=== PATIENT | male | born 1950 | race Caucasian/White ===

== ENCOUNTER 2019-01-05 10:23 | Outpatient (REF) | payer MEDICARE, BC, SELFPAY | END 2019-01-05 10:43 | LOC: NCHCN 10:23 | PROVIDERS: PCP Family Medicine; Visit Provider Internal Medicine | DX: R69 Illness, unspecified (principal) | CPT/HCPCS: 80048 ==

== ENCOUNTER 2019-05-18 15:30 | Outpatient (REF) | payer MEDICARE, BC, SELFPAY ==
[2019-05-18 21:45] LABS: Abs Immature Grans 0.02 k/cumm (0.0-0.09); Absolute Basophil Count 0.02 k/cumm (0.0-0.2); Absolute Eosinophil Count 0.21 k/cumm (0.0-0.7); Absolute Lymphocyte Count 1.18 k/cumm (1.2-3.4); Absolute Monocyte Count 0.58 k/cumm (0.11-0.7); Absolute Neutrophil Count 4.92 k/cumm (1.2-6.7); Basophils % 0.3; HCT 46.7 % (40.0-50.0); HGB 15.7 g/dL (13.5-17.5); Immature Grans % 0.3; Mean Corp. HGB Concentration 33.6 g/dL (32.0-36.0); Mean Corpuscular Hemoglobin 31.9 pg (27.0-33.0); Mean Corpuscular Volume 94.9 fL (80-95); Monocytes % 8.4; Platelet Count 164 x1000/uL (130-400); RBC 4.92 m/cumm (4.50-6.00); RBC Distribution Width 13.9 % (11.8-14.1); White Blood Cell Count 6.93 k/cumm (4.4-10.8)
[2019-05-18 22:41] LABS: ALT 30 U/L (16-63); AST 22 U/L (15-37); Albumin 4.2 g/dL (3.4-5.0); Alkaline Phosphatase 47 U/L (46-116); Anion Gap 9.1 mmol/L (3-11); BUN 18 mg/dL (7-18); Bilirubin, Total 0.4 mg/dL (0.2-1.0); CO2 27.9 mmol/L (21.0-32.0); CREATININE 0.93 mg/dL (0.70-1.30); Calcium 9.3 mg/dL (8.5-10.1); Chloride 104 mmol/L (98-107); Glucose 112 mg/dL (70-100); Potassium 4.8 mmol/L (3.5-5.1); Sodium 141 mmol/L (136-145); TSH (W/Ref FT4) 1.32 uIU/mL (0.36-3.74); Total Protein 7.3 g/dL (6.4-8.2); Vitamin B12 305 pg/mL (193-986)
[2019-05-18 23:23] LABS: Vitamin D 25 Total 37.6 ng/ml (30-100)
[2019-05-21 09:40] LABS: Anaplasma phagocytophilum Negative (Negative); B. miyamotoi PCR Negative (Negative); Babesia divergens/MO-1 Negative (Negative); Babesia duncani Negative (Negative); Babesia microti Negative (Negative); Ehrlichia chaffeensis Negative (Negative); Ehrlichia ewingii/canis Negative (Negative); Ehrlichia muris eauclairensis Negative (Negative)
[2019-05-22 11:04] LABS: Lyme Ab w Rflx to Lyme Confirm Negative
== END 2019-05-18 15:50 ==
LOC: NCHCN 15:30
PROVIDERS: PCP Family Medicine; Visit Provider Family Medicine
DX: R53.83 Other fatigue (principal); M25.50 Pain in unspecified joint; R10.11 Right upper quadrant pain
CPT/HCPCS: 80053; 82306; 87798; 82607; 84443; 85025; 86618

== ENCOUNTER 2019-08-18 14:41 | Outpatient (REF) | payer MEDICARE, BC, SELFPAY ==
[2019-08-18 21:00] LABS: Vitamin B12 687 pg/mL (193-986)
== END 2019-08-18 15:01 ==
LOC: NCHCN 14:41
PROVIDERS: PCP Family Medicine; Visit Provider Family Medicine
DX: E53.8 Deficiency of other specified B group vitamins (principal)
CPT/HCPCS: 82607

== ENCOUNTER 2020-02-27 18:09 | Outpatient (REF) | payer MEDICARE, BC, SELFPAY ==
[2020-02-27 20:36] LABS: ALT 31 U/L (16-63); AST 20 U/L (15-37); Albumin 4.4 g/dL (3.4-5.0); Alkaline Phosphatase 49 U/L (46-116); Anion Gap 8.9 mmol/L (3-11); BUN 14 mg/dL (7-18); Bilirubin, Total 0.4 mg/dL (0.2-1.0); CO2 30.1 mmol/L (21.0-32.0); CREATININE 0.98 mg/dL (0.70-1.30); Calcium 9.4 mg/dL (8.5-10.1); Chloride 104 mmol/L (98-107); Glucose 105 mg/dL (74-106); Potassium 4.5 mmol/L (3.5-5.1); Sodium 143 mmol/L (136-145); Total Protein 7.5 g/dL (6.4-8.2); Vitamin B12 399 pg/mL (193-986)
== END 2020-02-27 18:29 ==
LOC: NCHCN 18:09
PROVIDERS: PCP Family Medicine; Visit Provider Family Medicine
DX: E53.8 Deficiency of other specified B group vitamins (principal); R10.11 Right upper quadrant pain
CPT/HCPCS: 80053; 82607

== ENCOUNTER 2020-07-05 18:37 | Outpatient (REF) | payer MEDICARE, BC, SELFPAY ==
[2020-07-05 21:47] LABS: Vitamin B12 396 pg/mL (193-986)
== END 2020-07-05 18:57 ==
LOC: NCHCN 18:37
PROVIDERS: PCP Family Medicine; Visit Provider Family Medicine
DX: E53.8 Deficiency of other specified B group vitamins (principal)
CPT/HCPCS: 82607

== ENCOUNTER 2021-01-24 17:50 | Outpatient (REF) | payer MEDICARE, BC, SELFPAY ==
[2021-01-24 20:39] LABS: HCT 43.7 % (40.0-50.0); MCHC 34.3 % (32.0-36.0); MCV 93.2 fL (80-95); Platelet Count 156 10^3/uL (130-400); RBC 4.69 10^6/uL (4.36-5.78); RDW 12.9 % (11.8-14.1); WBC 6.33 10^3/uL (4.4-10.8)
[2021-01-24 21:20] LABS: ALT 27 U/L (16-63); AST 16 U/L (15-37); Albumin 4.1 g/dL (3.4-5.0); Alkaline Phosphatase 44 U/L (46-116); BUN 16 mg/dL (7-18); Bilirubin, Total 0.5 mg/dL (0.2-1.0); CREATININE 0.9 mg/dL (0.70-1.30); Chloride 105 mmol/L (98-107); Glucose 111 mg/dL (74-106); Sodium 142 mmol/L (136-145); Total Protein 6.9 g/dL (6.4-8.2); Vitamin B12 504 pg/mL (193-986)
== END 2021-01-24 17:51 | disposition home or self-care (01) ==
LOC: NCHCN 17:50
PROVIDERS: Visit Provider Family Medicine
DX: E53.8 Deficiency of other specified B group vitamins (principal); I25.10 Atherosclerotic heart disease of native coronary artery without angina pectoris
CPT/HCPCS: 80053; 85027; 82607

== ENCOUNTER 2021-06-12 16:19 | Outpatient (REF) | payer MEDICARE, BC, SELFPAY ==
[2021-06-12 21:54] LABS: ALT 27 U/L (16-63); AST 15 U/L (15-37); Albumin 3.8 g/dL (3.4-5.0); Alkaline Phosphatase 37 U/L (46-116); Anion Gap 7.8 mmol/L (3-11); BUN 18 mg/dL (7-18); Bilirubin, Total 0.3 mg/dL (0.2-1.0); CO2 28.2 mmol/L (21.0-32.0); Calcium 8.7 mg/dL (8.5-10.1); Calculated LDL 147 mg/dL (<100); Chloride 106 mmol/L (98-107); Cholesterol 224 mg/dL (<200); Glucose 151 mg/dL (74-106); HDL Cholesterol 52 mg/dL (40-60); Magnesium 2.1 mg/dL (1.8-2.4); Sodium 142 mmol/L (136-145); Total Protein 6.7 g/dL (6.4-8.2); Triglyceride 127 mg/dL (<150)
[2021-06-12 21:57] LABS: Vitamin B12 > 2000 pg/mL (193-986)
[2021-06-12 22:05] LABS: C-Reactive Protein 0.16 mg/dL (0.0-0.3)
[2021-06-13 17:02] LABS: Rheumatoid Factor <8.6 IU/mL (<12.0)
[2021-06-15 10:20] LABS: Cyclic Citrullinated Peptide <2.5 U/mL (<5.0)
[2021-06-16 11:24] LABS: Hepatitis C Ab w Rflx HCV PCR Negative (Negative)
[2021-06-16 13:56] LABS: ANA Interpretation Positive (Negative); ANA Titer Pattern 1:80 Homogeneous
== END 2021-06-12 16:20 | disposition home or self-care (01) ==
LOC: NCHCN 16:19
PROVIDERS: PCP Family Medicine; Visit Provider Family Medicine
DX: K76.0 Fatty (change of) liver, not elsewhere classified (principal); E53.8 Deficiency of other specified B group vitamins; R10.11 Right upper quadrant pain; M25.50 Pain in unspecified joint; G47.00 Insomnia, unspecified; Z11.59 Encounter for screening for other viral diseases
CPT/HCPCS: 80053; 80061; 86200; 86803; 82607; 83735; 86038; 86140; 86431

== ENCOUNTER 2022-01-15 14:44 | Outpatient (REF) | payer MEDICARE, BC, SELFPAY ==
[2022-01-15 14:32] LABS: HCT 47.7 % (40.0-50.0); HGB 15.9 g/dL (13.5-17.5); MCH 31.5 pg (27.0-33.0); MCHC 33.3 % (32.0-36.0); MCV 95 fL (80-95); MPV 11.6 fL (8.0-11.0); Platelet Count 168 10^3/uL (130-400); RBC 5.04 10^6/uL (4.36-5.78); RDW 12.9 % (11.8-14.1); RDW-SD 44.8 fL; WBC 6.83 10^3/uL (4.4-10.8)
[2022-01-15 14:50] LABS: Hemoglobin A1C 6.6 % (<5.7)
[2022-01-15 15:09] LABS: ALT 20 U/L (16-63); AST 15 U/L (15-37); Albumin 4.2 g/dL (3.4-5.0); Alkaline Phosphatase 46 U/L (46-116); Anion Gap 6.8 mmol/L (3-11); BUN 17 mg/dL (7-18); Bilirubin, Total 0.5 mg/dL (0.2-1.0); CO2 29.2 mmol/L (21.0-32.0); Chloride 105 mmol/L (98-107); Glucose 130 mg/dL (74-106); Potassium 4.4 mmol/L (3.5-5.1); Sodium 141 mmol/L (136-145); Total Protein 7.1 g/dL (6.4-8.2); Vitamin B12 340 pg/mL (193-986)
== END 2022-01-15 14:45 | disposition home or self-care (01) ==
LOC: NCHCN 14:44
PROVIDERS: PCP Family Medicine; Visit Provider Family Medicine
DX: R73.03 Prediabetes (principal); K76.0 Fatty (change of) liver, not elsewhere classified; I25.10 Atherosclerotic heart disease of native coronary artery without angina pectoris; E53.8 Deficiency of other specified B group vitamins
CPT/HCPCS: 80053; 85027; 82607; 83036

== ENCOUNTER 2022-04-09 16:27 | Outpatient (REF) | payer MEDICARE, BC, SELFPAY ==
[2022-04-09 15:06] LABS: Hemoglobin A1C 6.7 % (<5.7)
[2022-04-09 15:31] LABS: Anion Gap 8.9 mmol/L (3-11); BUN 18 mg/dL (7-18); CO2 27.1 mmol/L (21.0-32.0); Calcium 8.5 mg/dL (8.5-10.1); Chloride 104 mmol/L (98-107); Glucose 172 mg/dL (74-106); Potassium 3.6 mmol/L (3.5-5.1); Sodium 140 mmol/L (136-145); Vitamin B12 483 pg/mL (193-986)
== END 2022-04-09 16:28 | disposition home or self-care (01) ==
LOC: NCHCN 16:27
PROVIDERS: PCP Family Medicine; Visit Provider Family Medicine
DX: E11.9 Type 2 diabetes mellitus without complications (principal); E53.8 Deficiency of other specified B group vitamins; R03.0 Elevated blood-pressure reading, without diagnosis of hypertension; K76.0 Fatty (change of) liver, not elsewhere classified
CPT/HCPCS: 80048; 82607; 83036

== ENCOUNTER 2022-04-10 20:53 | Outpatient (REF) | payer MEDICARE, BC, SELFPAY ==
[2022-04-10 21:06] LABS: COMMENT (LAB VIEW ONLY) 69.81 mg/dL; Microalb ug/mg Crea 8.7 ug/mg Cr
== END 2022-04-10 20:54 | disposition home or self-care (01) ==
LOC: NCHCN 20:53
PROVIDERS: PCP Family Medicine; Visit Provider Family Medicine
DX: E11.9 Type 2 diabetes mellitus without complications (principal)
CPT/HCPCS: 82043; 82570

== ENCOUNTER 2023-06-03 15:57 | Outpatient (REF) | payer MEDICARE, BC, SELFPAY ==
[2023-06-03 21:15] LABS: Hemoglobin A1C 8.5 % (<5.7)
[2023-06-03 21:36] LABS: ALT 26 U/L (16-63); AST 19 U/L (15-37); Albumin 4.1 g/dL (3.4-5.0); Alkaline Phosphatase 51 U/L (46-116); Anion Gap 7.1 mmol/L (3-11); BUN 17 mg/dL (7-18); Bilirubin, Total 0.4 mg/dL (0.2-1.0); CO2 26.9 mmol/L (21.0-32.0); CREATININE 0.9 mg/dL (0.70-1.30); Calcium 9.2 mg/dL (8.5-10.1); Calculated LDL 155 mg/dL (<100); Chloride 102 mmol/L (98-107); Cholesterol 246 mg/dL (<200); Estimated GFR 90.74 (mL/min/1.73m2); Glucose 240 mg/dL (74-106); HDL Cholesterol 69 mg/dL (40-60); Potassium 4.5 mmol/L (3.5-5.1); Sodium 136 mmol/L (136-145); Total Protein 7.3 g/dL (6.4-8.2); Triglyceride 114 mg/dL (<150); Vitamin B12 358 pg/mL (193-986)
== END 2023-06-03 15:58 | disposition home or self-care (01) ==
LOC: NCHCN 15:57
PROVIDERS: PCP Family Medicine; Visit Provider Family Medicine
DX: E11.9 Type 2 diabetes mellitus without complications (principal)
CPT/HCPCS: 80053; 80061; 82607; 83036

== ENCOUNTER 2023-06-10 21:56 | Outpatient (REF) | payer MEDICARE, BC, SELFPAY ==
[2023-06-10 21:33] LABS: COMMENT (LAB VIEW ONLY) < 13.00 mg/dL
== END 2023-06-10 21:57 | disposition home or self-care (01) ==
LOC: NCHCN 21:56
PROVIDERS: PCP Family Medicine; Visit Provider Family Medicine
DX: E11.9 Type 2 diabetes mellitus without complications (principal)
CPT/HCPCS: 82043; 82570

== ENCOUNTER 2024-01-06 16:23 | Outpatient (REF) | payer MEDICARE, BC, SELFPAY ==
[2024-01-06 20:56] LABS: HCT 43.8 % (40.0-50.0); HGB 15.7 g/dL (13.5-17.5); MCH 32.8 pg (27.0-33.0); MCHC 35.8 % (32.0-36.0); MCV 92 fL (80-95); MPV 11.6 fL (8.0-11.0); Platelet Count 180 10^3/uL (130-400); RBC 4.78 10^6/uL (4.36-5.78); RDW 12.5 % (11.8-14.1); RDW-SD 41.8 fL; WBC 6.87 10^3/uL (4.4-10.8)
[2024-01-06 21:33] LABS: ALT 22 U/L (16-63); AST 16 U/L (15-37); Albumin 4.1 g/dL (3.4-5.0); Alkaline Phosphatase 45 U/L (46-116); Anion Gap 9.5 mmol/L (3-11); BUN 17 mg/dL (7-18); Bilirubin, Total 0.3 mg/dL (0.2-1.0); CO2 27.5 mmol/L (21.0-32.0); CREATININE 0.9 mg/dL (0.70-1.30); Calcium 9.4 mg/dL (8.5-10.1); Chloride 106 mmol/L (98-107); Estimated GFR 90.74 (mL/min/1.73m2); Glucose 118 mg/dL (74-106); Potassium 4.2 mmol/L (3.5-5.1); Sodium 143 mmol/L (136-145); Total Protein 7.4 g/dL (6.4-8.2); Vitamin B12 296 pg/mL (193-986)
== END 2024-01-06 16:24 | disposition home or self-care (01) ==
LOC: NCHCN 16:23
PROVIDERS: PCP Family Medicine; Visit Provider Family Medicine
DX: E53.8 Deficiency of other specified B group vitamins (principal); E78.5 Hyperlipidemia, unspecified
CPT/HCPCS: 80053; 85027; 82607

== ENCOUNTER 2024-06-08 19:25 | Outpatient (REF) | payer MEDICARE, BC, SELFPAY ==
[2024-06-08 22:11] LABS: Abs Immature Grans 0.03 10^3/uL (0.0-0.06); Absolute Basophil Count 0.02 10^3/uL (0.0-0.2); Absolute Eosinophil Count 0.21 10^3/uL (0.0-0.7); Absolute Lymphocyte Count 1.26 10^3/uL (1.2-3.4); Absolute Monocyte Count 0.77 10^3/uL (0.1-0.8); Absolute Neutrophil Count 4.62 10^3/uL (1.2-6.7); Basophils % 0.3 %; HCT 46.9 % (40.0-50.0); HGB 16.1 g/dL (13.5-17.5); Immature Grans % 0.4 %; Lymphocytes % 18.2 %; MCH 32.5 pg (27.0-33.0); MCHC 34.3 % (32.0-36.0); MCV 95 fL (80-95); MPV 11.6 fL (8.0-11.0); Monocytes % 11.1 %; Platelet Count 188 10^3/uL (130-400); RBC 4.95 10^6/uL (4.36-5.78); RDW 12.4 % (11.8-14.1); RDW-SD 43.2 fL; WBC 6.91 10^3/uL (4.4-10.8)
[2024-06-08 22:55] LABS: ALT 22 U/L (16-63); AST 20 U/L (15-37); Albumin 4.2 g/dL (3.4-5.0); Alkaline Phosphatase 44 U/L (46-116); Anion Gap 11.2 mmol/L (3-11); BUN 20 mg/dL (7-18); Bilirubin, Total 0.48 mg/dL (0.2-1.0); CO2 25.8 mmol/L (21.0-32.0); Calcium 9.9 mg/dL (8.5-10.1); Chloride 103 mmol/L (98-107); Estimated GFR 79.47 (mL/min/1.73m2); Glucose 111 mg/dL (74-106); Sodium 140 mmol/L (136-145); Total Protein 7.6 g/dL (6.4-8.2)
[2024-06-08 22:56] LABS: C-Reactive Protein < 0.50 mg/dL (<or=0.5)
[2024-06-09 18:34] LABS: PSA, Diagnostic 3.1 ng/mL (<=6.5)
== END 2024-06-08 19:26 | disposition home or self-care (01) ==
LOC: NCHCN 19:25
PROVIDERS: PCP Family Medicine; Visit Provider Family Medicine
DX: R63.4 Abnormal weight loss (principal)
CPT/HCPCS: 80053; 84153; 84443; 85025; 86140

== ENCOUNTER 2025-03-15 17:24 | Outpatient (REF) | payer MEDICARE, BC, SELFPAY ==
[2025-03-15 21:03] LABS: HCT 42.8 % (40.0-50.0); HGB 14.6 g/dL (13.5-17.5); MCH 31.9 pg (27.0-33.0); MCHC 34.1 % (32.0-36.0); MCV 94 fL (80-95); MPV 11.4 fL (8.0-11.0); Platelet Count 173 10^3/uL (130-400); RBC 4.57 10^6/uL (4.36-5.78); RDW 12.6 % (11.8-14.1); RDW-SD 42.7 fL; WBC 6.49 10^3/uL (4.4-10.8)
[2025-03-15 21:38] LABS: ALT 21 U/L (16-63); AST 17 U/L (15-37); Albumin 4.1 g/dL (3.4-5.0); Alkaline Phosphatase 50 U/L (46-116); Anion Gap 6.3 mmol/L (3-11); BUN 22 mg/dL (7-18); Bilirubin, Total 0.3 mg/dL (0.2-1.0); CO2 29.7 mmol/L (21.0-32.0); CREATININE 0.8 mg/dL (0.70-1.30); Calcium 9.1 mg/dL (8.5-10.1); Calculated LDL 142 mg/dL (<100); Chloride 105 mmol/L (98-107); Cholesterol 232 mg/dL (<200); Estimated GFR 92.87 (mL/min/1.73m2); Glucose 176 mg/dL (74-106); HDL Cholesterol 53 mg/dL (>or=40); Potassium 4.3 mmol/L (3.5-5.1); Sodium 141 mmol/L (136-145); Total Protein 7.2 g/dL (6.4-8.2); Triglyceride 185 mg/dL (<150)
[2025-03-15 21:39] LABS: Vitamin B12 > 2000 pg/mL (193-986)
== END 2025-03-15 17:25 | disposition home or self-care (01) ==
LOC: NCHCN 17:24
PROVIDERS: PCP Family Medicine; Visit Provider Family Medicine
DX: E78.5 Hyperlipidemia, unspecified (principal); E53.9 Vitamin B deficiency, unspecified
CPT/HCPCS: 80053; 80061; 85027; 82607

== ENCOUNTER 2025-08-03 16:31 | Outpatient (REF) | payer MEDICARE, BC, SELFPAY ==
[2025-08-03 21:13] LABS: Abs Immature Grans 0.02 10^3/uL (0.0-0.06); HCT 41.6 % (40.0-50.0); HGB 14.5 g/dL (13.5-17.5); Immature Grans % 0.2 %; MCH 32.7 pg (27.0-33.0); MCHC 34.9 % (32.0-36.0); MCV 94 fL (80-95); MPV 11.4 fL (8.0-11.0); Platelet Count 206 10^3/uL (130-400); RBC 4.43 10^6/uL (4.36-5.78); RDW 12.3 % (11.8-14.1); RDW-SD 42.5 fL; WBC 8.08 10^3/uL (4.4-10.8)
[2025-08-03 21:20] LABS: C-Reactive Protein 6.36 mg/dL (<=0.50)
[2025-08-03 21:23] LABS: ALT 22 U/L (10-49); AST 26 U/L (<34); Albumin 4.7 g/dL (3.4-5.0); Alkaline Phosphatase 44 U/L (46-116); Anion Gap 8.4 mmol/L (3-11); BUN 14 mg/dL (9-23); Bilirubin, Total 0.40 mg/dL (0.2-1.2); CO2 27.6 mmol/L (20.0-31.0); Calcium 9.4 mg/dL (8.3-10.6); Chloride 103 mmol/L (98-107); Glucose 134 mg/dL (74-106); Potassium 4.1 mmol/L (3.5-5.1); Sodium 139 mmol/L (136-145); Total Protein 7.2 g/dL (5.7-8.2)
[2025-08-03 21:25] LABS: TSH (W/Ref FT4) 1.10 uIU/mL (0.55-4.78)
[2025-08-03 21:28] LABS: Hemoglobin A1C 6.6 % (<5.7)
[2025-08-03 21:36] LABS: Vitamin B12 > 2000 pg/mL (211-911)
[2025-08-06 09:43] LABS: PSA, Screening 4.7 ng/mL (<=6.5)
== END 2025-08-03 16:32 | disposition home or self-care (01) ==
LOC: NCHCN 16:31
PROVIDERS: PCP Family Medicine; Visit Provider Family Medicine
DX: R63.4 Abnormal weight loss (principal); E53.9 Vitamin B deficiency, unspecified; E11.9 Type 2 diabetes mellitus without complications
CPT/HCPCS: 80053; 84153; 82607; 83036; 84443; 85025; 86140